=== PATIENT | male | born 2000 | race Two or more races ===

== ENCOUNTER 2020-09-14 18:09 | Emergency (ER) | payer BC ==
[~2020-09-14] VITALS: Ht 177.8 cm; Wt 80.0 kg
[2020-09-14] MEDS ORDERED: HYDROcodone/APAP 5/325 TABLET PO STA (18:50)
[2020-09-14] MEDS ORDERED: HYDROcodone/APAP 5/325 TABLET ONE (19:12)
--- NOTE | 2020-09-14 19:22 | NUR ---
Assist RN: patient presents to ER c/o right ankle/foot pain after being injured during a soccer game. Patient right ankle is swollen medially and laterally. Pain to touch. Medicated patient per aug. Ice provided.
--- NOTE | 2020-09-14 20:47 | NUR ---
PATIENT CLEARED FOR DISCHARGE. PATIENT VERBALIZED UNDERSTANDING OF SELF CARE AND FOLLOW UP CARE. NO NOTED ACUTE DISRESS. PATIENT GIVEN DISCHARGE INSTRUCTIONS AND SELF CARE INSTRUCTIONS AT HOME. VSS. TAKEN TO DISCHARGE DESK VIA WHEELCHAIR. PT REFUSED TO HAVE CRUTCHES SENT HOME. PT STATED THAT HE HAD CRUTCHES AT HOME WITH HIM.
[2020-09-14 20:48] VITALS: BP 122/62
== END 2020-09-14 20:50 | disposition home or self-care (01) ==
LOC: ED 18:55
DX: S82.61XA Displaced fracture of lateral malleolus of right fibula, initial encounter for closed fracture (principal); S93.491A Sprain of other ligament of right ankle, initial encounter; W18.30XA Fall on same level, unspecified, initial encounter; Y93.79 Activity, other specified sports and athletics; Y92.322 Soccer field as the place of occurrence of the external cause; Y99.8 Other external cause status
CPT/HCPCS: 29515; 99284